=== PATIENT | male | born 1995 | race Asian ===

== ENCOUNTER 2021-08-10 16:18 | Inpatient (IN) ==
[2021-08-10] MEDS ORDERED: Heparin - STEMI 5,000 UNITS/ML 1 ml VIAL IV ONE ×3 (16:31→16:50)
[2021-08-10] MEDS ORDERED: NS 0.9% 1000 ml BAG 1,000 ML IV ONE (16:37)
[2021-08-10] MEDS ORDERED: Morphine 2 MG/ML SYRINGE IV ONE (16:37)
[2021-08-10 16:39] LABS: ABS Eosinophils 0.1 10^3/ul (0-0.6); ABS Lymphocytes 1.8 10^3/ul (1.0-4.8); ABS Monocytes 0.3 10^3/ul (0-0.8); ABS Neutrophils 5.8 10^3/ul (1.5-7.7); Eosinophil % 1.5 %; Hematocrit 46 % (42-52); Hemoglobin 15.2 g/dL (14.0-18.0); Lymphocyte % 22.1 %; Mean Corpuscular HGB Conc 33 g/dL (31-36); Mean Corpuscular Hemoglobin 30 pg (27-31); Mean Corpuscular Volume 89 fL (80-94); Platelet Count 221 10^3/uL (150-450); Red Blood Count 5.13 10^6 /uL (4.18-5.48); Red Cell Distribution Width 13 % (10-15); White Blood Count 7.9 10^3/uL (3.5-10.8)
[2021-08-10] MEDS ORDERED: Heparin DRIP 25,000 UNITS BAG 0 UNITS/0 ML BAG ONE (16:43)
[2021-08-10] MEDS ORDERED: Heparin 1,000 UNIT/ML 10 ml (10,000 UNITS) CATHLAB/DIALYSIS ONE (16:45)
[2021-08-10] MEDS ORDERED: VERAPAMIL 2.5 MG/ML 2 ML VIAL ** 5 mg/2 ml ONE ×2 (16:45→16:49)
[2021-08-10] MEDS ORDERED: Midazolam 5 mg/5 ml VIAL 1 mg/ml 5 ml VIAL (5 mg) ONE (16:45)
[2021-08-10] MEDS ORDERED: fentaNYL 100 mcg/2 ml 50 MCG/ML VIAL ONE (16:45)
[2021-08-10] MEDS ORDERED: Iohexol 350 (CONTRAST) 200 ML MDV IV ONE ×2 (16:46→17:33)
[2021-08-10] MEDS ORDERED: Heparin 2 UNITS/ML 1000 mls 3,000 ML IV ONE (16:46)
[2021-08-10] MEDS ORDERED: nitroGLYCERIN DRIP 25,000 MCG/250 ML BTL ONE (16:46)
[2021-08-10] MEDS ORDERED: niCARdipine 0.1MG/ML IVPREMIX 0 MG/0 ML BAG IV ONE (16:47)
[2021-08-10 16:50] LABS: INR 1.05 (0.86-1.15)
[2021-08-10] MEDS ORDERED: Lidocaine 1% MPF 5 ML VIAL ONE ×3 (16:55→18:37)
[2021-08-10 17:13] LABS: Activated Partial Thrombo Time 25.1 seconds (26.0-38.0)
[2021-08-10 17:23] LABS: Albumin 4.4 g/dL (3.2-5.2); Albumin/Globulin Ratio 1.6 (1-3); Calcium 9.6 mg/dL (8.6-10.3); Globulin 2.8 g/dL (2-4); Potassium 3.7 mmol/L (3.5-5.0); Total Bilirubin 1.2 mg/dL (0.2-1.0); Total Protein 7.2 g/dL (6.4-8.9); eGFR CKD-EPI 97.2 (>60)
[2021-08-10] MEDS ORDERED: Bivalirudin 250 MG VIAL ONE (17:30)
[2021-08-10] MEDS ORDERED: DOPamine 800 MG/250 ML IVPREM 800 MG/250 ML ML CENTR ONE (17:38)
[2021-08-10] MEDS ORDERED: Norepinephrine 16MCG/ML BAG NS 4,000 MCG/250 ML BAG IV ONE (17:44)
[2021-08-10] MEDS ORDERED: Heparin 2 UNITS/ML 1000 mls 1,000 ML IV ONE ×2 (17:52→18:48)
[2021-08-10] MEDS ORDERED: Heparin DRIP 25,000 UNITS BAG 25,000 UNITS/500 ML BAG ONE (18:40)
[2021-08-10] MEDS ORDERED: Furosemide 40 mg/4 ml IV VIAL ONE (18:57)
[2021-08-10] MEDS ORDERED: NS 0.9% 1000 ml BAG 1,000 ML IV SCH (19:00)
[2021-08-10] MEDS ORDERED: Heparin DRIP 25,000 UNITS BAG 25,000 UNITS/500 ML BAG IV SCH (19:15)
[2021-08-10] MEDS ORDERED: Heparin 5000 UNITS/ML 1 mL VIAL IV SCH (20:00)
[2021-08-10] MEDS ORDERED: Norepinephrine 16MCG/ML BAGD5W 4,000 MCG/250 ML BAG IV ONE (21:54)
[2021-08-10] MEDS ORDERED: Norepinephrine 16MCG/ML IVPREMIX 4,000 MCG/250 ML D5W BAG IV SCH (23:00)
[2021-08-10] MEDS ORDERED: DOPAMINE CENTR SCH (23:00)
[2021-08-11 01:32] VITALS: BP 99/79
== END 2021-08-11 00:30 | disposition short-term general hospital (02) | DRG 246 ==
LOC: ED 16:18 → ICU 17:22 → CHICATH 17:22 → ICU 18:59